=== PATIENT | female | born 1990 | race Caucasian/White ===

== ENCOUNTER 2017-01-09 11:52 | Emergency (ER) | payer MEDICAID ==
[~2017-01-09] VITALS: Ht 172.7 cm; Wt 81.6 kg
[~2017-01-09 11:52] MED LIST: BIRTH CONTROL
[2017-01-09 11:57] VITALS: BP_SYST 156
[2017-01-09 13:48] VITALS: BP_SYST 117
== END 2017-01-09 13:45 | disposition home or self-care (01) ==
LOC: SED 11:52
DX: S13.4XXA Sprain of ligaments of cervical spine, initial encounter (principal); S00.03XA Contusion of scalp, initial encounter; R07.0 Pain in throat; Y04.2XXA Assault by strike against or bumped into by another person, initial encounter; Y93.89 Activity, other specified; Y92.89 Other specified places as the place of occurrence of the external cause; Y99.8 Other external cause status
CPT/HCPCS: 70450-TC; 72125-TC; 81025; 99284

== ENCOUNTER 2020-05-17 16:40 | Emergency (ER) | payer BC, MEDICAID ==
[~2020-05-17] VITALS: Ht 170.2 cm; Wt 102.1 kg
[2020-05-17 16:40] VITALS: BP_SYST 131
--- NOTE | 2020-05-17 16:40 | NUR ---
Patient to ER bed 02 to gown for evaluation. Side rails up. Report given to CINTHIA Lopez
--- NOTE | 2020-05-17 17:00 | NUR ---
Pt came to ER after strained back while exercising today mid back pain rates pain 9/10. Sitting in [facility], awaiting
--- NOTE | 2020-05-17 17:05 | NUR ---
ER at bedside examining patient.
[2020-05-17] MEDS ORDERED: KETOROLAC TROMETHAMINE 60 MG/2 ML VIAL IM ONE (17:15)
[2020-05-17 18:45] VITALS: BP_SYST 131
--- NOTE | 2020-05-17 18:45 | NUR ---
Patient given written and verbal discharge instructions and verbalizes understanding. ER MD discussed with patient the results and treatment provided. Patient in stable condition. ID arm band removed. Rx of Tramadol and Motrin given. Patient educated on pain management and to follow up with PMD. Pain Scale 3/10. Opportunity for questions provided and answered. Medication side effect fact sheet provided.
== END 2020-05-17 18:45 | disposition home or self-care (01) ==
LOC: SED 16:40
DX: G58.8 Other specified mononeuropathies (principal)
CPT/HCPCS: 72072; 81025; 96372; 99283; J1885